=== PATIENT | female | born 1975 | race Caucasian/White ===

== ENCOUNTER 2018-04-30 16:31 | Emergency (ER) | payer MEDICAID ==
[~2018-04-30] VITALS: Ht 154.9 cm; Wt 104.3 kg
[2018-04-30 16:45] VITALS: Ht 154.9 cm; Wt 104.3 kg
[2018-04-30 19:35] VITALS: BP 135/68
== END 2018-04-30 19:44 | disposition home or self-care (01) ==
LOC: ED 16:31
DX: K80.70 Calculus of gallbladder and bile duct without cholecystitis without obstruction (principal); Z98.51 Tubal ligation status; Z87.19 Personal history of other diseases of the digestive system; Z98.890 Other specified postprocedural states
CPT/HCPCS: J1885; J3010; Q0162